=== PATIENT | female | born 1975 | race Caucasian/White ===

== ENCOUNTER 2025-04-17 15:10 | Emergency (ER) | payer OTHER ==
[2025-04-17 15:46] VITALS: BMI 29.9
[2025-04-17] MEDS ORDERED: FAMOTIDINE 20 MG/50 ML IVPB 20 MG/50 ML MG IVPB ONE (17:27)
[2025-04-17 17:30] LABS: ABSOLUTE IMMATURE GRANULOCYTES 0.03 x10^3/uL (0.0-0.031); BASOPHILS # 0.01 x10^3/uL (0.01-0.08); EOSINOPHIL % 0.4 % (0.7-5.8); EOSINOPHILS # 0.04 x10^3/uL (0.04-0.36); MCHC 31.3 g/dl (32.2-35.5); MEAN CELL VOLUME 90.0 fl (79.4-94.8); MEAN PLT VOLUME 10.0 fl (9.4-12.3); MONOCYTE # 0.43 x10^3/uL (0.24-0.86); MONOCYTE % 4.3 % (4.7-12.5); RDW 13.3 % (12.2-17.1)
[2025-04-17] MEDS ORDERED: ACETAMINOPHEN 500 MG TABLET (FP) ONE (17:31)
[2025-04-17] MEDS: ACETAMINOPHEN 500 MG TABLET (FP) PO ONE (17:32)
[2025-04-17] MEDS: FAMOTIDINE 20 MG/50 ML IVPB 20 MG/50 ML MG IVPB ONE (17:32)
[2025-04-17] MEDS: SODIUM CHLORIDE 1,000 ML IV STA (17:33)
[2025-04-17 17:53] LABS: CO2 30.0 mmol/L (21-32); GLUCOSE,RANDOM 129.0 mg/dL (74-106)
[2025-04-17 17:56] LABS: CREATININE 0.9 mg/dL (0.55-1.3); SGOT/AST 41.0 U/L (15-37); SGPT/ALT 79.0 U/L (13-61)
[2025-04-17 17:57] LABS: TOT PROT 7.4 g/dl (6.4-8.2)
[2025-04-17 17:59] LABS: ALK PHOS 78.0 U/L (45-117)
[2025-04-17] MEDS ORDERED: PANTOPRAZOLE SODIUM 40 MG VIAL ONE (18:23)
[2025-04-17] MEDS: PANTOPRAZOLE SODIUM 40 MG VIAL IVPUSH ONE (18:29)
[2025-04-17 18:43] LABS: HCV DIAGNOSTIC IN-HOUSE W/RFLX NON-REACTIVE (NONREACTIVE); HIV INTERPRETATION NEGATIVE (NEGATIVE)
[2025-04-17 19:23] VITALS: BP 122/79; PULSE 84; RESP 18; TEMP 98.8
== END 2025-04-17 19:22 | disposition home or self-care (01) ==
LOC: JER 15:10
PROC: 3E033GC Introduction of Other Therapeutic Substance into Peripheral Vein, Percutaneous Approach (ICD-10-PCS; principal; 2025-04-17)
PROC: 3E033GC Introduction of Other Therapeutic Substance into Peripheral Vein, Percutaneous Approach (ICD-10-PCS; 2025-04-17)
PROC: 3E033GC Introduction of Other Therapeutic Substance into Peripheral Vein, Percutaneous Approach (ICD-10-PCS; 2025-04-17)
DX: L50.9 Urticaria, unspecified (principal); K21.9 Gastro-esophageal reflux disease without esophagitis; R21 Rash and other nonspecific skin eruption; R10.13 Epigastric pain; R10.12 Left upper quadrant pain; L29.9 Pruritus, unspecified
CPT/HCPCS: 36415; 80053; 83690; 84484; 85025; 86803; 87389; 93005; 93010; 99284-25